=== PATIENT | female | born 1990 | race American Indian/Alaskan Native ===

== ENCOUNTER 2018-05-24 06:31 | Outpatient (CLI) | payer OTHER ==
--- NOTE | 2018-05-24 10:19 | Cat Scan Report ---
CT ABDOMEN AND PELVIS WITH AND WITHOUT CONTRAST INDICATION: Lower abdominal pain. COMPARISON: 03/11/2016 abdomen and pelvis MRI. FINDINGS: Abdomen and pelvis CT performed before and after IV contrast. Oral contrast also given. LUNG BASES: Top normal heart size. No effusions. Slight nonspecific distal esophageal prominence. ABDOMEN: Precontrast images demonstrate no radiopaque gallstones or renal calculi. Postcontrast images demonstrate unremarkable liver, spleen, gallbladder, pancreas, adrenals, aorta, IVC and kidneys. Opacified GI tract now nonobstructive. Normal appendix. Mild to moderate stool throughout colon/possible constipation. No ascites or size significant adenopathy. Small fat-containing umbilical hernia with a transverse neck of approximately 1 cm. PELVIS: Grossly unremarkable uterus with physiologic adnexa/ovaries, including approximately 1.9 cm cyst on the right posteriorly, axial series 5, image 71. Few tiny nonspecific calcifications toward the uterine fundus/left adnexa as on axial image 73 as well. Mild rectosigmoid stool. Unremarkable urinary bladder. No free fluid or significant adenopathy. Unremarkable bones. CONCLUSION: No acute significant CT abnormality with few incidental findings, as above. Please correlate. Thank you for the opportunity to participate in this patient's care.
== END 2018-05-24 06:32 | disposition home or self-care (01) ==
LOC: CT 06:31
PROVIDERS: ATTEND Nurse Practitioner
DX: K42.9 Umbilical hernia without obstruction or gangrene (principal); N83.201 Unspecified ovarian cyst, right side
CPT/HCPCS: 74178; Q9967

== ENCOUNTER 2018-08-08 12:20 | Emergency (ER) | payer SELFPAY ==
[2018-08-08] MEDS ORDERED: NACL 0.9% 1000 ML IV ONE (13:50)
--- NOTE | 2018-08-08 13:50 | Emergency Department Report ---
Chief Complaint: Abdominal Pain Stated Complaint: ABD/BACK PAIN/JOSIE Time Seen by Provider: 08/08/18 13:48 - HPI History of Present Illness: abd pain for 3 days limping n/v/d- none thc last yesterday AM psh csec p hysterectomy rx none no dysuria no vag dc MSE screening note: Focused history and physical exam performed. Due to findings the following was ordered: ED Disposition for MSE Condition: Stable Instructions: Abdominal Pain (ED)
[2018-08-08 13:51] VITALS: BP 112/74
[2018-08-08] MEDS ORDERED: IBUPROFEN PO ONE ×2 (13:53→13:54)
[2018-08-08] MEDS ORDERED: VANCOMYCIN PHARMACY TO DOSE IV SCH (14:00)
[2018-08-08 14:38] LABS: Basophils % (Auto) 0.4 % (0.0-1.8); Eosinophils % (Auto) 0.1 % (0.0-4.3); Hematocrit 36.1 % (30.3-42.9); Hemoglobin 12.5 gm/dl (10.1-14.3); Lymphocytes # (Auto) 0.8 K/mm3 (1.2-5.4); Lymphocytes % (Auto) 8.1 % (13.4-35.0); Mean Corpuscular HGB Conc 35 % (30-34); Mean Corpuscular Volume 96 fl (79-97); Monocytes # (Auto) 0.6 K/mm3 (0.0-0.8); Monocytes % (Auto) 6.5 % (0.0-7.3); Platelet Count 215 K/mm3 (140-440); Red Blood Count 3.77 M/mm3 (3.65-5.03)
--- NOTE | 2018-08-08 14:45 | XRay Report ---
Chest 2 views: History: Fever. Findings: Normal cardiomediastinal silhouette. Trachea is midline. No consolidation, pneumothorax or pleural effusion. Impression: No acute cardiopulmonary findings
[2018-08-08] MEDS ORDERED: ROCEPHIN/NS 2 GM/100 ML 2 GM/100 ML BAG IV SCH (14:50)
[2018-08-08] MEDS ORDERED: VANCOMYCIN 1,250 MG in NACL 0.9% 250ML 250 ML IV ONE (14:50)
[2018-08-08 14:57] LABS: Alanine Aminotransferase 17 units/L (7-56); Albumin 3.7 g/dL (3.9-5); BUN/Creatinine Ratio 7; Blood Urea Nitrogen 5 mg/dL (7-17); Calcium 8.4 mg/dL (8.4-10.2); Hemolysis Index 0
[2018-08-08] MEDS ORDERED: PEPCID IV ONE (15:55)
[2018-08-08] MEDS ORDERED: NACL 0.9% 1000 ML 1,000 ML IV ONE (15:55)
[2018-08-08] MEDS ORDERED: MORPHINE IV ONE (15:55)
[2018-08-08] MEDS ORDERED: TORADOL IV ONE (15:55)
--- NOTE | 2018-08-08 16:55 | Emergency Department Report ---
<DIRK SUN - Last Filed: 08/08/18 16:53> ED Abdominal Pain HPI - General Chief Complaint: Abdominal Pain Stated Complaint: ABD/BACK PAIN/JOSIE Time Seen by Provider: 08/08/18 13:48 Source: patient, EMS Mode of arrival: Ambulatory Limitations: No Limitations - History of Present Illness Initial Comments: Patient is a 28-year-old French female is complaining of diffuse abdominal pain for the last 3 days. Patient states the pain is so bad that she is having trouble walking. Patient denies any nausea vomiting or diarrhea. She states is been no cough or congestion. He states the pain is aching throbbing and she states it starts mostly underneath the ribs however she is tender to palpation everywhere. Patient denies any fever at home however she was febrile on arrival. Severity scale (0 -10): 2 - Related Data Home Medications Medication Instructions Recorded Confirmed Last Taken Pnv No.95/Ferrous Fum/Folic AC 1 each PO DAILY 02/29/16 03/10/16 03/07/16 09:00 [ Caplet] Previous Rx's Medication Instructions Recorded Last Taken Type Ferrous Sulfate [Feosol 325 MG tab] 325 mg PO BID #60 tablet 02/29/16 03/07/16 09:00 Rx Ibuprofen [Motrin 600 MG tab] 600 mg PO Q8H PRN #30 tablet 03/08/16 Unknown Rx Multivitamin with Iron 1 each PO DAILY #30 tablet 03/08/16 Unknown Rx [Multivitamins with Iron] oxyCODONE /ACETAMINOPHEN [Percocet 1 tab PO Q6HR PRN #30 tablet 03/08/16 Unknown Rx 5/325] cephALEXin [Keflex] 500 mg PO Q12HR #14 cap 03/13/16 Unknown Rx Ciprofloxacin HCl [Cipro] 500 mg PO BID #20 tablet 08/08/18 Unknown Rx Ondansetron [Zofran Odt] 4 mg PO Q8HR #14 tab.rapdis 08/08/18 Unknown Rx Phenazopyridine [Pyridium] 200 mg PO TID #9 tab 08/08/18 Unknown Rx traMADol [Ultram] 50 mg PO Q6HR PRN #10 tablet 08/08/18 Unknown Rx Allergies Allergy/AdvReac Type Severity Reaction Status Date / Time No Known Allergies Allergy Verified 08/08/18 12:26 ED Review of Systems Comment: All other systems reviewed and negative ED Past Medical Hx - Past Medical History Previous Medical History?: No Hx Hypertension: No Hx Congestive Heart Failure: No Hx Diabetes: No Hx Deep Vein Thrombosis: No Hx Renal Disease: No Hx Sickle Cell Disease: No Hx Seizures: No Hx Asthma: No Hx COPD: No Hx HIV: No - Surgical History Past Surgical History?: Yes Additional Surgical History: Hysterectomy - Social History Smoking Status: Never Smoker Substance Use Type: Alcohol, Marijuana - Medications Home Medications: Home Medications Medication Instructions Recorded Confirmed Last Taken Type Ferrous Sulfate [Feosol 325 MG tab] 325 mg PO BID #60 tablet 02/29/16 03/10/16 03/07/16 09:00 Rx Pnv No.95/Ferrous Fum/Folic AC 1 each PO DAILY 02/29/16 03/10/16 03/07/16 09:00 History [ Caplet] Ibuprofen [Motrin 600 MG tab] 600 mg PO Q8H PRN #30 tablet 03/08/16 Unknown Rx Multivitamin with Iron 1 each PO DAILY #30 tablet 03/08/16 Unknown Rx [Multivitamins with Iron] oxyCODONE /ACETAMINOPHEN [Percocet 1 tab PO Q6HR PRN #30 tablet 03/08/16 Unknown Rx 5/325] cephALEXin [Keflex] 500 mg PO Q12HR #14 cap 03/13/16 Unknown Rx Ciprofloxacin HCl [Cipro] 500 mg PO BID #20 tablet 08/08/18 Unknown Rx Ondansetron [Zofran Odt] 4 mg PO Q8HR #14 tab.rapdis 08/08/18 Unknown Rx Phenazopyridine [Pyridium] 200 mg PO TID #9 tab 08/08/18 Unknown Rx traMADol [Ultram] 50 mg PO Q6HR PRN #10 tablet 08/08/18 Unknown Rx ED Physical Exam - General Limitations: No Limitations General appearance: alert, in distress - Head Head exam: Present: atraumatic, normocephalic - Eye Eye exam: Present: normal appearance, PERRL, EOMI - ENT ENT exam: Present: mucous membranes moist - Neck Neck exam: Present: normal inspection - Respiratory Respiratory exam: Present: normal lung sounds bilaterally. Absent: respiratory distress, wheezes, rales, rhonchi, stridor - Cardiovascular Cardiovascular Exam: Present: regular rate, normal rhythm. Absent: systolic murmur, diastolic murmur, rubs, gallop - GI/Abdominal GI/Abdominal exam: Present: soft, tenderness (diffuse), normal bowel sounds. Absent: distended, guarding, rebound, rigid - Extremities Exam Extremities exam: Present: normal inspection - Back Exam Back exam: Present: normal inspection - Neurological Exam Neurological exam: Present: alert, oriented X3 - Psychiatric Psychiatric exam: Present: normal affect, normal mood - Skin Skin exam: Present: warm, dry, intact, normal color. Absent: rash ED Medical Decision Making - Lab Data Result diagrams: 08/08/18 14:18 08/08/18 14:18 Lab Results 08/08/18 08/08/18 08/08/18 Range/Units 14:18 14:18 14:18 WBC 9.9 (4.5-11.0) K/mm3 RBC 3.77 (3.65-5.03) M/mm3 Hgb 12.5 (10.1-14.3) gm/dl Hct 36.1 (30.3-42.9) % MCV 96 (79-97) fl MCH 33 H (28-32) pg MCHC 35 H (30-34) % RDW 12.0 L (13.2-15.2) % Plt Count 215 (140-440) K/mm3 Lymph % (Auto) 8.1 L (13.4-35.0) % [place] % (Auto) 6.5 (0.0-7.3) % Eos % (Auto) 0.1 (0.0-4.3) % Baso % (Auto) 0.4 (0.0-1.8) % Lymph # 0.8 L (1.2-5.4) K/mm3 [place] # 0.6 (0.0-0.8) K/mm3 Eos # 0.0 (0.0-0.4) K/mm3 Baso # 0.0 (0.0-0.1) K/mm3 Seg Neutrophils % 84.9 H (40.0-70.0) % Seg Neutrophils # 8.4 H (1.8-7.7) K/mm3 Sodium 138 (137-145) mmol/L Potassium 3.1 L (3.6-5.0) mmol/L Chloride 101.3 (98-107) mmol/L Carbon Dioxide 23 (22-30) mmol/L Anion Gap 17 mmol/L BUN 5 L (7-17) mg/dL Creatinine 0.7 (0.7-1.2) mg/dL Estimated GFR > 60 ml/min BUN/Creatinine Ratio 7 % Glucose 104 H (65-100) mg/dL Lactic Acid 0.80 (0.7-2.0) mmol/L Calcium 8.4 (8.4-10.2) mg/dL Total Bilirubin 0.50 (0.1-1.2) mg/dL AST 21 (5-40) units/L ALT 17 (7-56) units/L Alkaline Phosphatase 71 (35-129) units/L Total Protein 6.8 (6.3-8.2) g/dL Albumin 3.7 L (3.9-5) g/dL Albumin/Globulin Ratio 1.2 % ED Disposition Clinical Impression: Pyelonephritis, Abdominal pain Disposition: TO HOME OR SELFCARE Condition: Stable Instructions: Abdominal Pain (ED), Acute Pyelonephritis (ED), Urinary Tract Infection in Women (ED) Additional Instructions: Discharge emergency department. Should you experience any worsening fever, inability to keep food or drink down, severe abdominal pain not controlled with medication, and he suggested that her condition is worsening Prescriptions: Ciprofloxacin HCl [Cipro] 500 mg PO BID #20 tablet Phenazopyridine [Pyridium] 200 mg PO TID #9 tab traMADol [Ultram] 50 mg PO Q6HR PRN #10 tablet PRN Reason: Pain Ondansetron [Zofran Odt] 4 mg PO Q8HR #14 tab.rapdis [facility] Care [facility] - 2-3 Days <CLOVER VERMA - Last Filed: 08/08/18 19:51> ED Review of Systems ROS: Stated complaint: ABD/BACK PAIN/JOSIE Other details as noted in HPI ED Course Vital Signs 08/08/18 13:48 Temperature 101.6 F H Pulse Rate 109 H Respiratory 18 Rate Blood Pressure 112/74 [Left] O2 Sat by Pulse 99 Oximetry ED Medical Decision Making - Lab Data Result diagrams: 08/08/18 14:18 08/08/18 14:18 - Radiology Data Radiology results: report reviewed Findings [facility] [address] [place] [address] Cat Scan Report Signed Patient: IGNACIO BROWN MR#: [id number] : 1990 Acct:[id number] Age/Sex: 28 / F ADM Date: 08/08/18 Loc: ED Attending Dr: Ordering Physician: DIRK SUN MD Date of Service: 08/08/18 Procedure(s): CT abdomen pelvis w con Accession Number(s): [id number] cc: DIRK SUN MD PROCEDURE: CT ABDOMEN PELVIS W CON TECHNIQUE: Following administration of IV contrast axial helical imaging was performed through the abdomen and pelvis with sagittal and coronal reformatted images obtained. Delayed axial helical imaging was also performed through the abdomen and pelvis. HISTORY: diffuse abd pain with fever COMPARISONS: CT abdomen and pelvis dated May 24, 2018. The report of that study is not available for review at the time of this dictation. FINDINGS: There is dependent atelectasis in both lung bases. The liver, spleen, pancreas and adrenal glands are unremarkable. The gallbladder is mildly distended and unremarkable. There are areas of decreased enhancement in the right kidney with stranding of the right perinephric fat. There is no evidence of hydronephrosis, hydroureter or urinary tract calculi. The urinary bladder is moderately distended and unremarkable in appearance. There is variable distention of the small bowel and colon without evidence of a focus of transition. The ascending and transverse colon is largely air and fluid-filled with air- fluid levels. There is no evidence of bowel wall thickening or pericolic inflammatory change. The appendix is upper limits of normal caliber and contains air. There is no evidence of periappendiceal inflammatory change. There is a small amount of free fluid in the deep pelvis. This may be physiologic in nature. There is no evidence of pneumoperitoneum. The abdominal aorta is normal caliber. There is no evidence of intra-abdominal adenopathy. There are mildly prominent bilateral inguinal lymph nodes that are nonspecific in appearance but are most likely inflammatory in nature. Visualization of detail of the uterus and adnexa is limited. The bony structures are unremarkable. IMPRESSION: 1. Areas of abnormal enhancement of the right kidney with stranding of the right perinephric fat. The appearance is most suggestive of right pyelonephritis. 2. Variable distention of the small bowel and colon with air-fluid levels in portions of the colon without bowel wall thickening. This is suggestive of enteritis. 3. Small amount of free fluid in the pelvis. This is a nonspecific finding but may be physiologic in nature. This document is electronically signed by Teressa Miner MD., Aug 08 2018 06:04:29 PM ET Transcribed By: ED Dictated By: TERESSA MINER MD Electronically Authenticated By: TERESSA MINER MD Signed Date/Time: 08/08/18 1806 - Medical Decision Making 8-year-old female seen by Dr. Sun with flank pain and fever. Laboratory data to support a urinary tract infection/pyelonephritis. CT scan also supports pyelonephritis well. There is no no diarrhea. Although there is some suspicion for some enteritis. She also has a known history of ovarian cysts. No dysp areunia or vaginal discharge is noted. Some of her lower quadrant pain may be secondary to a cyst, although not seen on CT scan. Told patient needs to be reevaluated most urinary tract infections cleared by [facility]. If the pain continues linger. At the completion of her medication regimen. Critical care attestation.: If time is entered above; I have spent that time in minutes in the direct care of this critically ill patient, excluding procedure time. ED Disposition Is pt being admited?: No Does the pt Need Aspirin: No
[2018-08-08 17:28] LABS: Bacteria,Urine 1+ /HPF (Negative); Bilirubin,Urine NEG (Negative); Blood,Urine NEG (Negative); Color,Urine Yellow (Yellow); Mucus,Urine FEW /HPF
--- NOTE | 2018-08-08 18:06 | Cat Scan Report ---
PROCEDURE: CT ABDOMEN PELVIS W CON TECHNIQUE: Following administration of IV contrast axial helical imaging was performed through the a bdomen and pelvis with sagittal and coronal reformatted images obtained. Delayed axial helical imagin g was also performed through the abdomen and pelvis. HISTORY: diffuse abd pain with fever COMPARISONS: CT abdomen and pelvis dated May 24, 2018. The report of that study is not available for review at the time of this dictation. FINDINGS: There is dependent atelectasis in both lung bases. The liver, spleen, pancreas and adrenal glands are unremarkable. The gallbladder is mildly distended and unremarkable. There are areas of decreased enhancement in the right kidney with stranding of the right perinephric fat. There is no evidence of hydronephrosis, hydroureter or urinary tract calculi. The urinary bladder is moderately distended and unremarkable in appearance. There is variable distention of the small bowel and colon without evidence of a focus of transition. The ascending and transverse colon is largely air and fluid-filled with air-fluid levels. There is no evidence of bowel wall thickening or pericolic inflammatory change. The appendix is upper limits of normal caliber and contains air. There is no evidence of periappendic eal inflammatory change. There is a small amount of free fluid in the deep pelvis. This may be physiologic in nature. There is no evidence of pneumoperitoneum. The abdominal aorta is normal caliber. There is no evidence of intra-abdominal adenopathy. There are mildly prominent bilateral inguinal lymph nodes that are nonspecific in appearance but are most likely inflammatory in nature. Visualization of detail of the uterus and adnexa is limited. The bony structures are unremarkable. IMPRESSION: 1. Areas of abnormal enhancement of the right kidney with stranding of the right perinephric fat. The appearance is most suggestive of right pyelonephritis. 2. Variable distention of the small bowel and colon with air-fluid levels in portions of the colon wi thout bowel wall thickening. This is suggestive of enteritis. 3. Small amount of free fluid in the pelvis. This is a nonspecific finding but may be physiologic in nature. This document is electronically signed by Teressa Miner MD., Aug 08 2018 06:04:29 PM ET
[2018-08-08] MEDS ORDERED: ROCEPHIN/NS 1 GM/50 ML 1 GM/50 ML BAG IV ONE (20:12)
[2018-08-08] MEDS ORDERED: ROCEPHIN IM ONE (20:13)
[2018-08-08] MEDS ORDERED: PERCOCET 5/325 ONE (21:23)
[2018-08-08] MEDS ORDERED: PERCOCET 5/325 PO ONE (21:25)
[2018-08-09] MEDS ORDERED: VANCOMYCIN 1,250 MG in NACL 0.9% 250ML 250 ML IV SCH (04:00)
== END 2018-08-08 21:27 | disposition home or self-care (01) ==
LOC: ED 12:20
DX: N12 Tubulo-interstitial nephritis, not specified as acute or chronic (principal); F12.10 Cannabis abuse, uncomplicated; Z90.710 Acquired absence of both cervix and uterus
CPT/HCPCS: 36415; 71046; 74177; 80053; 81001; 82140; 85025; 87040; 87076; 87086; 87186; 96365; 96366; 96367; 99285; J0696; J1885; J2270; J3370; J7030; J7050; Q9967